=== PATIENT | female | born 1965 | race Caucasian/White ===

== ENCOUNTER → 2019-12-16 | Outpatient (CLI) | payer BC ==
--- NOTE | 2019-12-19 14:37 | MM ---
Reason for exam: screening (asymptomatic). Last mammogram was performed 11 years ago. History: Took hormonal contraceptives for 7 years. Physical Findings: A clinical breast exam by your physician is recommended on an annual basis and results should be correlated with mammographic findings. MG 3D Screening Mammo W/Cad Bilateral CC and MLO view(s) were taken. Prior study comparison: December 10, 2008, bilateral digital screening mammogram. December 02, 2007, bilateral digital screening mammogram. The breast tissue is heterogeneously dense. This may lower the sensitivity of mammography. There is no discrete abnormality. No significant changes when compared with prior studies. ASSESSMENT: Negative, BI-RAD 1 RECOMMENDATION: Routine screening mammogram of both breasts in 1 year.
== END | disposition home or self-care (01) ==
LOC: RADMAMWWP 14:35
PROVIDERS: ATTEND Family Medicine
DX: Z12.31 Encounter for screening mammogram for malignant neoplasm of breast (principal)
CPT/HCPCS: 77063; 77067

== ENCOUNTER → 2020-06-03 | Outpatient (CLI) | payer BC ==
--- NOTE | 2020-06-03 10:17 | FL ---
EXAMINATION TYPE: FL UGI air w esophagus DATE OF EXAM: 06/03/2020 COMPARISON: NONE HISTORY: Dysphasia, difficulty swallowing food and water. Long history of mild abdominal pain and ref lux TECHNIQUE: A double contrast UGI study is performed. Total of 0.41 minutes fluoroscopic time. 55 marlen ges are saved to PACS. FINDINGS: Powderer image of the abdomen shows overall nonobstructive bowel gas pattern. Incidental bila teral Essure tubes noted in the pelvis The esophagus shows satisfactory motility and emptying into the stomach. Small sliding-type hiatal he rnia. No diverticulum. No stricture. The stomach shows less than optimal distention on images saved. Mild diffuse gastric fold prominence. No focal ulcer disease. No intraluminal mass. Mild gastroesophageal reflux was seen during real sania e performance of this study. The duodenal bulb, sweep, and proximal small bowel loops are unremarkable. IMPRESSION: Small sliding-type hiatal hernia with mild distal gastroesophageal reflux and mild underl allison diffuse gastritis. No suspicious esophageal mass or stricture. Satisfactory esophageal motility noted.
== END | disposition home or self-care (01) ==
LOC: RADUSWWP 08:05
PROVIDERS: ATTEND Internal Medicine
DX: K44.9 Diaphragmatic hernia without obstruction or gangrene (principal); K21.9 Gastro-esophageal reflux disease without esophagitis; K29.70 Gastritis, unspecified, without bleeding
CPT/HCPCS: 74246

== ENCOUNTER → 2021-06-03 | Outpatient (CLI) | payer BC ==
--- NOTE | 2021-06-06 12:03 | MM ---
Reason for exam: screening (asymptomatic). Last mammogram was performed 1 year and 6 months ago. History: Patient is postmenopausal. Took hormonal contraceptives for 7 years. Physical Findings: A clinical breast exam by your physician is recommended on an annual basis and results should be correlated with mammographic findings. MG 3D Screening Mammo W/Cad Bilateral CC and MLO view(s) were taken. Prior study comparison: December 16, 2019, bilateral MG 3d screening mammo w/cad. December 10, 2008, bilateral digital screening mammogram. No significant changes when compared with prior studies. ASSESSMENT: Benign, BI-RAD 2 RECOMMENDATION: Routine screening mammogram of both breasts in 1 year.
== END | disposition home or self-care (01) ==
LOC: RADMAMWWP 08:03
PROVIDERS: ATTEND Internal Medicine
DX: Z12.31 Encounter for screening mammogram for malignant neoplasm of breast (principal); Z78.0 Asymptomatic menopausal state
CPT/HCPCS: 77063; 77067

== ENCOUNTER → 2021-12-15 | Outpatient (CLI) | payer BC ==
--- NOTE | 2021-12-15 13:29 | XR ---
EXAMINATION TYPE: XR Hip Complete RT DATE OF EXAM: 12/15/2021 COMPARISON: NONE HISTORY: Pain TECHNIQUE: 2 views submitted FINDINGS: There is no evidence of erosive change or acute fracture. There is soft tissue ossification adjacent to the greater trochanter. Previous surgery in the pelvis suggestive with vascular calcification. IMPRESSION: 1. Soft tissue calcification or ossification adjacent to the greater trochanter can be associated wit h trochanteric bursitis correlate clinically.
[2021-12-15 18:29] LABS: Basophils # (A) 0.04 X 10*3/uL (0.00-0.10); Basophils % (A) 0.5 %; Eosinophils # (A) 0.42 X 10*3/uL (0.04-0.35); Eosinophils % (A) 5.2 %; HGB 13.5 g/dL (12.0-15.0); Immature Grans, Automated 0.5 %; Lymphocytes # (A) 2.62 X 10*3/uL (0.90-5.00); Lymphocytes % (A) 32.2 %; MCHC 32.1 g/dL (32.0-37.0); MCV 96.3 fL (80.0-97.0); Mean Platelet Volume 10.9 fL (9.5-12.2); Monocytes # (A) 0.57 X 10*3/uL (0.20-1.00); NRBC Per 100 WBC 0 /100 WBCS (0.0-0.0); Neutrophils # (A) 4.45 X 10*3/uL (1.80-7.70); Neutrophils % (A) 54.6 %; Platelet Count 343 X 10*3/uL (140-440); RBC 4.36 X 10*6/uL (4.10-5.20); RDW 12.6 % (11.5-14.5); WBC 8.14 X 10*3/uL (4.50-10.00)
[2021-12-15 18:42] LABS: ALT 33 U/L (8-44); AST 28 U/L (13-35); African American GFR (CKD) 113.8 (60.0-200.0); Albumin 4.7 g/dL (3.8-4.9); Albumin/Globulin Ratio 1.81 (1.60-3.17); Alkaline Phosphatase 82 U/L (41-126); BUN/Creat Ratio 20.14 Ratio (12.00-20.00); Blood Urea Nitrogen 14.1 mg/dL (9.0-27.0); Calcium 9.6 mg/dL (8.7-10.3); Carbon Dioxide 23.5 mmol/L (20.0-27.5); Chloride 103 mmol/L (96-109); Chol/HDL Ratio 2.79 Ratio; Globulin 2.6 g/dL (1.6-3.3); Glucose 93 mg/dL (70-110); LDL Cholesterol,Calculated 102.5 mg/dL (0.0-131.0); Non-African American GFR(CKD) 98.2 (60.0-200.0); Potassium 4.3 mmol/L (3.5-5.5); Sodium 139 mmol/L (135-145); Total Protein 7.3 g/dL (6.2-8.2)
== END | disposition home or self-care (01) ==
LOC: LABWHC1 12:56
PROVIDERS: ATTEND Internal Medicine
DX: M25.551 Pain in right hip (principal); F41.9 Anxiety disorder, unspecified; E78.2 Mixed hyperlipidemia
CPT/HCPCS: 36415; 73502; 80053; 80061; 84443; 85025

== ENCOUNTER → 2021-12-30 | Outpatient (CLI) | payer BC ==
--- NOTE | 2022-01-02 20:04 | BD ---
EXAMINATION TYPE: Axial Bone Density DATE OF EXAM: 12/30/2021 COMPARISON: FIRST DEXA AT [facility] CLINICAL HISTORY: 56 years year old Female. ICD-10 CODE: M81.0 Age-related osteoporosis without curr ent pat Height: 62IN Weight: 178 FRAX RISK QUESTIONS: Alcohol (3 or more units per day): YES Secondary Osteoporosis: RISK FACTORS HISTORY OF: Active: YES Postmenopausal woman: YES AT 55 MEDICATIONS: Additional Medications: XANAX, CALCIUM, VITAMIN D, CHOLESTEROL MEDS Additional History: EXAM MEASUREMENTS: Bone mineral densitometry was performed using the [employer] System. Bone mineral density as measured about the Lumbar spine is: ----- L1-L4(G/cm2): 1.222 T Score Values are as follows: ----- L1: -1.3 ----- L2: 0.2 ----- L3: 1.1 ----- L4: 1.0 ----- L1-L4: 0.4 FIRST DEXA AT [facility] Bone mineral density about the R hip (g/cm2): 1.106 Bone mineral density about the L hip (g/cm2): 1.168 T Score values are as follows: -----R Neck: -1.3 -----L Neck: -0.4 -----R Total: 0.8 -----L Total: 1.3 FIRST DEXA AT [facility] FRAX%s: The graph provided illustrates a 7.0% chance for a major osteoporotic fx and a 0.6% chance fo r the hips probability for fx in 10 years time. IMPRESSION: Osteopenia (T Score between -2.5 and -1). There is slightly increased risk of fracture and the patient may be considered for treatment. Re-Screen 2-5 years. NOTE: T-SCORE=SD OF THE YOUNG ADULT MEAN.
== END | disposition home or self-care (01) ==
LOC: RADBDWWP 15:05
PROVIDERS: ATTEND Internal Medicine
DX: M85.89 Other specified disorders of bone density and structure, multiple sites (principal); Z78.0 Asymptomatic menopausal state
CPT/HCPCS: 77080

== ENCOUNTER 2022-01-15 17:01 | Emergency (ER) | payer BC ==
[2022-01-15 17:09] VITALS: RESP 18; TEMP 98.1
--- NOTE | 2022-01-15 17:32 | ED ---
General Adult HPI - General Chief complaint: Recheck/Abnormal Lab/Rx Stated complaint: COVID + Time Seen by Provider: 01/15/22 17:15 Source: patient, RN notes reviewed, old records reviewed Mode of arrival: ambulatory - History of Present Illness Initial comments: Patient is a 56-year-old female with past medical history remarkable for hyperlipidemia on statin therapy as well as taking Xanax at home who presents in the department with a confirmed Covid-positive case. Began having symptoms this morning. Has a known sick contacts, her . Was vaccinated boosted for Co vid. Took a home test this morning and was positive. Called the ER seeking therapy. Presents for further evaluation at this time. Endorses nasal congestion, mild nonproductive cough. Denies fevers. Denies sore throat. Denies nausea, vomiting. Denies chest pain. Denies diarrhea. No other acute complaints at this time. She is seeking Paxlovid therapy. - Related Data Allergies Allergy/AdvReac Type Severity Reaction Status Date / Time Penicillins AdvReac Unknown Verified 01/15/22 17:09 Childhood Review of Systems ROS Statement: Those systems with pertinent positive or pertinent negative responses have been documented in the HPI. Review of Systems: CONST: Denies fever EYES: Denies blurry vision ENT: Endorses nasal congestion C/V: Denies Chest pain RESP: Denies shortness of breath GI: Denies abdominal pain : Denies dysuria SKIN: Denies rash. MSK: Denies joint pain. NEURO: Denies headache ROS Other: All systems not noted in ROS Statement are negative. Past Medical History Past Medical History: Hyperlipidemia History of Any Multi-Drug Resistant Organisms: None Reported Past Surgical History: No Surgical Hx Reported Past Psychological History: No Psychological Hx Reported Smoking Status: Never smoker Past Alcohol Use History: Rare Past Drug Use History: None Reported General Exam - General Exam Comments Initial Comments: General: Appears in no acute distress. HEAD: Normal with no signs of head trauma. EYES: EOMI ENT: Hearing grossly intact, normal oropharynx. Moist mucous membranes. RESPIRATORY: Clear breath sounds bilaterally. No wheezes, rales, or rhonchi. No increased work of breathing. No hypoxia. C/V: Regular rate and rhythm. S1 and S2 auscultated, no edema, peripheral pulses 2+ and intact throughout ABD: Abd is soft, nontender, nondistended EXT: Normal range of motion, no obvious deformity SKIN: No rashes or lesions observed on exposed skin. NEURO: Alert and oriented 4. No focal deficits. Course Vital Signs 01/15/22 17:05 Temperature 98.1 F Pulse Rate 90 Respiratory 18 Rate O2 Sat by Pulse 97 Oximetry Medical Decision Making - Medical Decision Making Based on the patient's presentation and physical exam, patient is COVID-19 positive. She has a picture of a confirmed positive test at home. Her symptoms are mild upper respiratory symptoms. She is requesting Paxlovid prescription. She does not meet criteria for monoclonal antibody therapy at our facility. I do not believe that further testing is required at this time. I did discuss with her that there are some cross interactions possible between her benzodiazepines as well as statin with the therapy. Recommended she stop taking his while she is on Paxlovid. She was in agreement this plan. We discussed quarantine until at least 2 days symptom-free. We discussed obtaining a pulse oximeter to monitor oxygen saturations coming to return to the emergency department if she has worsening symptoms or oxygen saturation saturations less than 90%. She was in agreement this plan. Patient will be discharged home at this time. Vital signs are within normal limits. No hypoxia. No respiratory distress. Patient was given a paper prescription for Paxlovid. I instructed the patient to follow up with their PCP in the next 1-3 days. I explained that the patient should return to the emergency department if they experience any worsening symptoms. Strict return precautions were discussed with the patient. The patient expressed understanding of these instructions. I answered all questions that the patient had. The patient was discharged home in good condition with their prescriptions and follow up information. Disposition Clinical Impression: COVID-19 virus infection Disposition: HOME SELF-CARE Condition: Good Instructions (If sedation given, give patient instructions): COVID-19 (Coronavirus Disease 2019) (ED) Additional Instructions: Quarentine until 2 days symptom free. Obtain pulse oximeter to monitor oxygen levels. Normal is 95% or higher. Return to the ED if 90% or less or if worsening symptoms. Hold your statin and xanax while taking Paxlovid. Is patient prescribed a controlled substance at d/c from ED?: No Referrals: Marisol Rushing MD [Primary Care Provider] - 1-2 days Time of Disposition: 17:30
[2022-01-15 17:58] VITALS: BP 118/79; PULSE 85
== END 2022-01-15 17:59 | disposition home or self-care (01) ==
LOC: EC 17:01
DX: U07.1 COVID-19 (principal); E78.5 Hyperlipidemia, unspecified; Z88.0 Allergy status to penicillin
CPT/HCPCS: 99283

== ENCOUNTER → 2022-03-25 | Outpatient (CLI) | payer BC ==
--- NOTE | 2022-03-25 14:43 | MR ---
EXAMINATION TYPE: MR brain and iac wo/w con DATE OF EXAM: 03/25/2022 COMPARISON: None HISTORY: Headaches, vertigo. TECHNIQUE: Multiplanar, multisequence images of the brain and brainstem is performed without and with IV contras t, utilizing 7 mL intravenous Gadavist . FINDINGS: On the T1-weighted sagittal images, the midline structures including the craniovertebral junction rel ationships are normal. The ventricles, basal cisterns and sulci over convexities are within normal limits. There is a small to moderate remote ischemic infarct involving the posterior left frontal cortex. Based on diffusion-weighted imaging, there is no acute ischemic event or diffusion restriction. The posterior fossa including the brainstem, fourth ventricle, cerebellar pontine angles and internal auditory canals and contents are normal. There is no pathologic enhancement throughout the brain parenchyma or posterior fossa. The intraorbital contents appear normal and symmetric. There are mild chronic inflammatory changes in the maxillary sinuses IMPRESSION: 1. Small to moderate remote ischemic infarct of the posterior left frontal cortex. 2. No acute ischemic event. 3. No abnormality of the posterior fossa and internal auditory canals.
== END | disposition home or self-care (01) ==
LOC: RADMRIMAIN 11:45
PROVIDERS: ATTEND Internal Medicine
DX: I63.9 Cerebral infarction, unspecified (principal)
CPT/HCPCS: 70553; A9585

== ENCOUNTER → 2022-04-03 | Outpatient (CLI) | payer BC ==
--- NOTE | 2022-04-07 07:03 | HM ---
HOLTER MONITOR REPORT The patient was monitored for 24 hours. Baseline rhythm is a sinus mechanism with normal conduction. The average rate 88 beats per minute, minimum 51, maximum 144 beats per minute. Ventricular ectopic activity was present in the form of rare single PVCs. Supraventricular ectopic activity was present in the form of rare single PACs. Symptoms of dizziness and lightheadedness did not correlate with any dysrhythmia. CONCLUSION: 1. Sinus mechanism baseline rhythm. 2. Rare ventricular ectopic activity. 3. Rare supraventricular ectopic activity. 4. Symptoms did not correlate with any dysrhythmia. MMODL / IJN: [id number] /
== END | disposition home or self-care (01) ==
LOC: RADECHMAIN 07:35
PROVIDERS: ATTEND Internal Medicine
DX: I63.322 Cerebral infarction due to thrombosis of left anterior cerebral artery (principal)
CPT/HCPCS: 93225; 93226

== ENCOUNTER → 2022-04-04 | Outpatient (CLI) | payer BC ==
--- NOTE | 2022-04-04 15:59 | CT ---
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 Recent abn ormal MRI. COMPARISON: MRI brain [address] DLP: 1414.90 mGycm. Automated Exposure Control for Dose Reduction was Utilized. TECHNIQUE: CTA scan of the head and neck is performed without and with IV Contrast, patient injected with 65 mL of Isovue 370, axial images are obtained, coronal and sagittal reformatted images are rev iewed. 3D reconstructed images are created on an independent workstation and reviewed. FINDINGS: Carotid/Vascular Structures: Normal three-vessel origin from aortic arch. No significant plaque or st enosis. Normal origin right common carotid artery from the right brachiocephalic artery. No significa nt plaque or stenosis in the common or internal carotid arteries bilaterally including a level of pancho ateral carotid bulbs. Patent bilateral external carotid arteries without significant stenosis. There are patent bilateral vertebral arteries to the basilar junction with dominant left vertebral ar jemma noted. There is patent right posterior communicating artery filling right P2 segment. Hypoplasti c right P1 segment is noted. There is patent left posterior communicating artery. No aneurysm of the posterior circulation. Anterior circulation shows hypoplastic right A1 segment with filling of the ri ght A2 segment due to patent anterior communicating artery. There is no aneurysm identified. There is patent left-sided middle cerebral artery to the trifurcation. Other: Noncontrast images show no acute intracranial hemorrhage or midline shift. Ventricles and sulc i within normal limits in size. Old infarct with focal encephalomalacia left frontal lobe anterior wa tershed region is redemonstrated. Globes are intact and visualized sinuses are clear. Nasal septum re dannielle deviated to right of midline. IMPRESSION: Normal variant tejon of Mckay. No significant focal stenosis or aneurysm. No significant focal sten osis in common or internal carotid arteries bilaterally. NASCET criteria was used in interpretation of this exam?
== END | disposition home or self-care (01) ==
LOC: RADCTMAIN 14:24
PROVIDERS: ATTEND Internal Medicine
DX: I63.322 Cerebral infarction due to thrombosis of left anterior cerebral artery (principal)
CPT/HCPCS: 70496; 70498; Q9967

== ENCOUNTER → 2022-06-12 | Outpatient (CLI) | payer BC ==
--- NOTE | 2022-06-13 11:21 | CA ---
Transthoracic Echo Report Name: Jessica Short Age: 57 Gender: F : 1965 Exam Date: 06/12/2022 15:09 Exam Location: [place] [facility] Ht (in): 63 Wt (lb): 175 Ordering Physician: Marisol Rushing MD Attending/Referring Phys: Solar Project Engineer Nadine Jackson RDCS Procedure CPT: Indications: I63.322 CEREBRAL INFRC DUE TO THOMBOS OF LEFT ANT Cardiac Hx: Technical Quality: Fair Contrast 1: Total Dose (mL): Contrast 2: Total Dose (mL): MEASUREMENTS (Male / Female) Normal Values 2D ECHO LV Diastolic Diameter PLAX 4.9 cm 4.2 - 5.9 / 3.9 - 5.3 cm LV Systolic Diameter PLAX 3.3 cm IVS Diastolic Thickness 1.2 cm 0.6 - 1.0 / 0.6 - 0.9 cm LVPW Diastolic Thickness 1.0 cm 0.6 - 1.0 / 0.6 - 0.9 cm LV Relative Wall Thickness 0.4 RV Internal Dim ED PLAX 4.2 cm LA Volume 30.9 cm??? 18 - 58 / 22 - 52 cm??? M-MODE Aortic Root Diameter MM 3.1 cm LA Systolic Diameter MM 3.9 cm LA Ao Ratio MM 1.3 AV Cusp Separation MM 2.3 cm DOPPLER AV Peak Velocity 87.5 cm/s AV Peak Gradient 3.1 mmHg AV Mean Velocity 62.5 cm/s AV Mean Gradient 1.7 mmHg AV Velocity Time Integral 16.2 cm LVOT Peak Velocity 65.1 cm/s LVOT Peak Gradient 1.7 mmHg MV Area PHT 4.2 cm??? Mitral E Point Velocity 58.9 cm/s Mitral A Point Velocity 79.4 cm/s Mitral E to A Ratio 0.7 MV Deceleration Time 181.2 ms MV E' Velocity 5.4 cm/s Mitral E to MV E' Ratio 10.8 FINDINGS Left Ventricle Mildly increased septal wall thickness. Normal left ventricular systolic function with no obvious regional wall motion abnormalities. Normal left ventricular diastolic filling pattern. Left ventricular cavity size normal. Left ventricular ejection fraction is estimated at 55-60 %. Right Ventricle Mild right ventricular dilatation. Right ventricular systolic pressure within normal limits. Right Atrium Normal right atrial size. Left Atrium Normal left atrial size. Mitral Valve Structurally normal mitral valve. No mitral stenosis, regurgitation or prolapse. Aortic Valve Trileaflet aortic valve. No aortic valve stenosis or regurgitation. Tricuspid Valve Structurally normal tricuspid valve. Mild tricuspid regurgitation. Pulmonic Valve Trace pulmonic regurgitation. Pericardium No pericardial effusion. Aorta Normal size aortic root and proximal ascending aorta. CONCLUSIONS Normal LV function Previewed by: Dr. Milton Acevedo MD (Electronically Signed) Final Date: 13 June 2022 11:20
== END | disposition home or self-care (01) ==
LOC: RADECHMAIN 14:53
PROVIDERS: ATTEND Internal Medicine
DX: I63.322 Cerebral infarction due to thrombosis of left anterior cerebral artery (principal)
CPT/HCPCS: 93306

== ENCOUNTER → 2023-01-09 | Outpatient (CLI) | payer BC ==
--- NOTE | 2023-01-10 15:50 | MM ---
Reason for Exam: Screening (asymptomatic). Last mammogram was performed 1 year(s) and 7 month(s) ago. Patient History: Menarche at age 16. First Full-Term at age 21. Postmenopausal. Patient used Hormonal Contraceptives for 7 years. Risk Values: Monica 5 year model risk: 0.8%. NCI Lifetime model risk: 5.5%. Prior Study Comparison: 12/10/2008 Bilateral Screening Mammogram, [facility]. 12/16/2019 Bilateral Screening Mammogram, [facility]. 06/03/2021 Bilateral Screening Mammogram, [facility]. Tissue Density: There are scattered fibroglandular densities. Findings: Analyzed By CAD. Pattern appears symmetrical and stable. No significant interval change is evident. No suspicious groups of microcalcifications, spiculated or lobular masses, architectural distortion or other secondary signs of malignancy are mammographically apparent. Overall Assessment: Benign, BI-RAD 2 Management: Screening Mammogram of both breasts in 1 year. A negative mammogram report should not preclude additional follow up of suspicious palpable abnormalities. Patient should continue monthly self breast exam. A clinical breast exam by your physician is recommended on an annual basis and results should be correlated with mammographic findings. Electronically signed and approved by: Fletcher Garner D.O. Radiologis
== END | disposition home or self-care (01) ==
LOC: RADMAMWWP 07:51
PROVIDERS: ATTEND Internal Medicine
DX: Z12.31 Encounter for screening mammogram for malignant neoplasm of breast (principal); Z78.0 Asymptomatic menopausal state
CPT/HCPCS: 77063; 77067

== ENCOUNTER → 2024-04-28 | Outpatient (CLI) | payer BC ==
--- NOTE | 2024-04-28 22:16 | MM ---
Reason for Exam: Screening (asymptomatic). Last mammogram was performed 1 year(s) and 4 month(s) ago. Patient History: Menarche at age 16. First Full-Term at age 21. Postmenopausal. Patient used Hormonal Contraceptives for 7 years. Risk Values: Monica 5 year model risk: 0.8%. NCI Lifetime model risk: 5.2%. Prior Study Comparison: 12/16/2019 Bilateral Screening Mammogram, [facility]. 06/03/2021 Bilateral Screening Mammogram, [facility]. 01/09/2023 Bilateral MG 3D screening mammo w/cad, [facility]. Tissue Density: There are scattered areas of fibroglandular density. Findings: Analyzed By CAD. The pattern is symmetrical. No significant interval change evident. Benign calcifications are present bilaterally. No suspicious groups of microcalcifications, spiculated or lobular masses, architectural distortion or other secondary signs of malignancy are mammographically apparent. Overall Assessment: Benign, BI-RAD 2 Management: Screening Mammogram of both breasts in 1 year. A negative mammogram report should not preclude additional follow up of suspicious palpable abnormalities. Patient should continue monthly self breast exam. A clinical breast exam by your physician is recommended on an annual basis and results should be correlated with mammographic findings. Note on Monica scores and lifetime risk: 1. A Monica score greater than 3% is considered moderate risk. If this is the case, consider specialist referral to assess eligibility for a risk reducing agent. 2. If overall lifetime risk for the development of breast cancer is 20% or higher, the patient may qualify for future screening with alternating mammogram and breast MRI. [facility], , 04/28/2024 10:14 PM. Electronically signed and approved by: Fletcher Garner D.O. Radiologis
== END | disposition home or self-care (01) ==
LOC: RADMAMWWP 09:16
PROVIDERS: ATTEND Internal Medicine
DX: Z12.31 Encounter for screening mammogram for malignant neoplasm of breast (principal); Z78.0 Asymptomatic menopausal state; R92.323 Mammographic fibroglandular density, bilateral breasts
CPT/HCPCS: 77063; 77067